=== PATIENT | female | born 1965 | race Caucasian/White ===

== ENCOUNTER 2018-05-26 11:09 | Outpatient (CLI) | payer BC ==
[~2018-05-26] VITALS: Ht 152.4 cm; Wt 74.5 kg
--- NOTE | ~2018-05-26 | HEMODYNAMI ---
PATIENT:MEE SPIVEY MEDICAL RECORD: [id number] : 69 LOCATION:[facility] ADMISSION DATE: 05/26/18 Generatedon:05/26/201814:32 Patient name: MEE SPIVEY Patient #: [id number] SSN: : Date of study: 05/26/2018 Page: Of Hemodynamic Procedure Report Patient Data Patient Demographics Procedure consent was obtained First Name: MEE Gender: Female Last Name: PATRIC : 1965 [facility] Initial: JARROD Age: 52 year(s) Patient #: [id number] Race: Unknown Additional ID: [id number] Contact details Address: [address] [place] [address] rd [facility] [place] [facility] Zip code: [address] Admission Admission Data Admission Date: 05/26/2018 Admission Time: 11:09 Admit Source: Other Insurance Payor: Private health insurance Height (in.): 62 BSA: 1.75 (m2) Height (cm.): 157.48 BMI: 29.63 (kg/m2) Weight (lbs.): 162 Weight (kg.): 73.48 Lab Results Lab Result Date: 05/26/2018 Lab Result Time: 0:00 Biochemistry Name Units Result Min Max BUN mg/dl 16 --(---*)-- 7 18 Creatinine mg/dl 1.1 --(--*-)-- 0.6 1.3 CBC Name Units Result Min Max Hemoglobin g/dl 13.5 --(*---)-- 13.5 17.5 Procedure Procedure Types Cath Procedure Diagnostic Procedure LHC LHC w/Coronaries Sedation Charges Moderate Sedation up to 15 minutes Procedure Description Procedure Date Procedure Date: 05/26/2018 Procedure Start Time: 14:04 Procedure End Time: 14:22 Procedure Staff Name Function John Cash MD Performing Physician Donna Godinez RT Monitor Dwight Weaver RN Nurse Pham Way RT Scrub Procedure Data Cath Procedure Fluoroscopy Diagnostic fluoroscopy Total fluoroscopy Time: 3.9 time: 3.9 min min Diagnostic fluoroscopy Total fluoroscopy dose: 597 dose: 597 mGy mGy Contrast Material Contrast Material Type Amount (ml) Isovue 300 58 Entry Location Entry Primary Successful Side Size Upsize Upsize Entry Closure Honeycutt ccessful Closure Location (Fr) 1 (Fr) 2 (Fr) Remarks Device Remarks Radial Right 6 Fr Mechanical artery Short Compression Femoral Right 5 Fr Exoseal artery Estimated blood loss: 5 ml Diagnostic catheters Device Type Used For End Catheter Placement DIAGNOSTIC Diamondhead 110cm 5 Multi-vessel Fr catheter ([id number]) Angiography DIAGNOSTIC JL 4.0 5Fr Left Coronary catheter ([id number]) Angiography DIAGNOSTIC Pigtail 5Fr LV Angiography catheter ([id number]) Procedure Complications No complications Procedure Medications Medication Administration Route Dosage Oxygen etCO2 Nasal cannula 2 l/min Heparin Flush Bag added to field 2 bags (1000units/500ml NS) 0.9% NaCl I.V. 100 ml/hr Radial Cocktail added to field 1 syringe (Verapomil 2mg/Nitro 400mcg/Heparin 1500units) Fentanyl I.V. 50 mcg Versed I.V. 1 mg Fentanyl I.V. 50 mcg Versed I.V. 1 mg Radial Cocktail I.A. 1 syringe (Verapomil 2mg/Nitro 400mcg/Heparin 1500units) Fentanyl I.V. 100 mcg Hemodynamics Rest BSA: 1.75 (m2) HGB: 13.5 (g/dl) O2 Consumption: Estimated: 177.23 (ml/min) O2 Co nsumption indexed: Estimated:101.27 (ml/min/m) Heart Rate: 80 (bpm) Pressure Samples Time Site Value (mmHg) Purpose Heart Use Rate(bpm) 14:19 LV 83/-22,3 Snapshot 85 14:19 AO 92/68(78) Pullback 78 14:19 LV 112/20,18 Pullback 78 Gradients Valve Time Site 1 Site 2 Mean SEP/DFP Peak To Heart Use (mmHg) (sec/min) Peak Rate (mmHg) (bpm) Aortic 14:19 LV AO 15 22 20 78 112/20,18 92/68(78) Calculations Valve P-P Mean Valve Index Valve Source Name Gradient Area Flow (cm2) Aortic 20 15 20 15 Snapshots Pre Cath Intra NCS Post Cath Vital Signs Time Heart Resp SPO2 etCO2 NIBP (mmHg) Rhythm Pain Sedation Rate (ipm) (%) (mmHg) Status Level (bpm) 13:51:28 81 16 98 37.5 122/81(111) NSR 0 (11) 10(A) , No pain 13:55:36 83 17 99 40.5 128/81(104) NSR 0 (11) 10(A) , No pain 13:59:48 83 17 96 37.5 105/73(88) NSR 0 (11) 9(A) , No pain 14:03:52 78 16 95 33 100/72(87) NSR 0 (11) 9(A) , No pain 14:07:55 79 17 97 48.7 112/65(90) NSR 0 (11) 9(A) , No pain 14:12:01 87 16 93 43.6 105/58(78) NSR 0 (11) 9(A) , No pain 14:16:05 84 16 96 43.5 97/67(79) NSR 0 (11) 9(A) , No pain 14:20:04 81 17 96 42.8 98/73(81) NSR 0 (11) 9(A) , No pain 14:24:51 90 16 42.8 106/74(88) NSR 0 (11) 9(A) , No pain Medications Time Medication Route Dose Verified Delivered Reason Notes Effectiveness by by 13:52:01 Oxygen etCO2 2 l/min John Quintanilla Per Nasal St Reg Weaver RN physician cannula 13:52:10 Heparin Flush added 2 bags John Quintanilla used for Bag to St Reg Weaver RN procedure (1000units/500ml field HENRY NS) 13:52:19 0.9% NaCl I.V. 100 John Quintanilla Per ml/hr [facility] Reg Weaver RN physician 13:52:27 Radial Cocktail added 1 John Quintanilla used for (Verapomil to syringe [facility] Reg Weaver RN procedure 2mg/Nitro field HENRY 400mcg/Heparin 1500units) 13:56:54 Fentanyl I.V. 50 mcg John Quintanilla for sedation St Reg Weaver RN, MD 13:57:00 Versed I.V. 1 mg John Quintanilla for sedation St Reg Weaver RN, MD 14:03:58 Fentanyl I.V. 50 mcg John Quintanilla for sedation St Reg Weaver RN, MD 14:04:02 Versed I.V. 1 mg John Quintanilla for sedation St Reg Weaver RN, MD 14:07:35 Radial Cocktail I.A. 1 John Lopez for (Verapomil syringe St Reg Cash vasodilation 2mg/Nitro MD HENRY 400mcg/Heparin 1500units) 14:29:15 Fentanyl I.V. 100 mcg John Quintanilla for sedation St Reg Weaver RN, MD Procedure Log Time Note 13:08:43 Patient Height : 62 inches 13:08:52 Patient Weight : 162 lbs 13:25:27 Dwight Weaver RN sent for patient. Start room use. 13:31:28 Time tracking: Regular hours (M-F 7:00 - 5:00) 13:31:33 Plan of Care:Hemodynamics will remain stable., Cardiac rhythm will remain stable., Comfort level will be maintained., Respiratory function will remain adequate., Patient/ family verbilizes understanding of procedure., Procedure tolerated without complication., Recovers from procedure without complications.. 13:41:15 Patient received from Pre/Post Procedure Room to [facility] 2 Alert and oriented. Tansferred to table in Supine position. 13:41:17 Warm blankets applied, and jannet hugger turned on for patient comfort. 13:41:17 Correct patient and procedure confirmed by team. 13:41:19 Signed procedure consent form obtained from patient. 13:41:21 ECG and BP/O2 sat monitors applied to patient. 13:50:25 Vital chart was started 13:52:01 Oxygen 2 l/min etCO2 Nasal cannula was administered by Dwight Weaver RN; Per physician; 13:52:10 Heparin Flush Bag (1000units/500ml NS) 2 bags added to field was administered by Dwight Weaver RN; used for procedure; 13:52:19 0.9% NaCl 100 ml/hr I.V. was administered by Dwight Weaver RN; Per physician; 13:52:27 Radial Cocktail (Verapomil 2mg/Nitro 400mcg/Heparin 1500units) 1 syringe added to field was administered by Dwight Weaver RN; used for procedure; 13:54:35 Baseline sample Acquired. 13:54:39 Rhythm: sinus rhythm 13:54:41 Full Disclosure recording started 13:54:44 H&P Date Dictated: 05/26/2018 Within 30 days and on chart., H&P Addendum completed by physician on day of procedure. (MUST COMPLETE FOR ALL OUTPATIENTS). 13:54:48 Pre-procedure instructions explained to patient. 13:54:48 Pre-op teaching completed and patient verbalized understanding. 13:54:50 Family in waiting room. 13:54:53 Patient NPO since Midnight. 13:55:01 Is the patient allergic to Iodine/contrast media? No. 13:55:02 Was the patient premedicated? No 13:55:23 Is patient on blood thinner?No 13:55:24 Patient diabetic? Yes. 13:55:25 If diabetic: On Metformin? No 13:55:28 Previous problem with sedation/anesthesia? No ? 13:55:30 Snore? Yes 13:55:30 Sleep apnea? No 13:55:31 Deviated septum? No 13:55:32 Opens mouth fully? Yes 13:55:33 Sticks out tongue? Yes 13:55:37 Airway obstruction? No ? 13:55:42 Dentures? No ? 13:55:47 Pre procedure: right dorsailis pedis pulse 1+ Palpable, but thready & weak; easily obliterated 13:55:50 Pre procedure: left dorsailis pedis pulse 1+ Palpable, but thready & weak; easily obliterated 13:55:52 Patient pain scale 0/10 ?. 13:56:04 IV patent on arrival in left forearm with 0.9% NaCl at [facility]. 13:56:07 Lab results completed and on chart. 13:56:11 Right Radial & Right Groin area was prepped with chlora-prep and draped in sterile fashion 13:56:12 Alarms reviewed by R. N. 13:56:12 Sharps counted by scrub and verified by R.N. 13:56:13 Physician arrived 13:56:14 --------ALL STOP TIME OUT------ 13:56:14 Final Timeout: patient, procedure, and site verified with staff and physician. All members of the team are in agreement. 13:56:16 Right Radial & Right Groin site verified by team. 13:56:19 Physical assessment completed. ASA score P 2 - A patient with mild systemic disease as per John Cash MD. 13:56:22 Sedation plan: IV Moderate Sedation Medication:Versed, Fentanyl 13:56:26 Use device set Radial Dx or PCI 13:56:28 ACIST Syringe (35922) opened to sterile field. 13:56:28 Medline Cath Pack ([id number]) opened to sterile field. 13:56:29 Bag Decanter (2002) opened to sterile field. 13:56:29 DIAGNOSTIC WIRE .035 260cm J wire (676063) opened to sterile field. 13:56:30 ACIST Hand Control (91362) opened to sterile field. 13:56:30 ACIST Manifold (46429) opened to sterile field. 13:56:31 Tegaderm 4 x 4 (1626W) opened to sterile field. 13:56:31 MBrace Wrist Support ([id number]) opened to sterile field. 13:56:33 SHEATH 6Fr Prelude Radial ([id number]) opened to sterile field. 13:56:54 Fentanyl 50 mcg I.V. was administered by Dwight Weaver RN; for sedation; 13:57:00 Versed 1 mg I.V. was administered by Dwight Weaver RN; for sedation; 14:03:12 Zero performed for pressure channel P1 14:03:58 Fentanyl 50 mcg I.V. was administered by Dwight Weaver RN; for sedation; 14:04:02 Versed 1 mg I.V. was administered by Dwight Weaver RN; for sedation; 14:04:26 Procedure started. 14:04:30 Local anesthetic to right radial artery with Lidocaine 2% by John Cash MD.INITIAL ACCESS ONLY 14:07:29 A 6 Fr Short sheath was inserted into the Right Radial artery 14:07:35 Radial Cocktail (Verapomil 2mg/Nitro 400mcg/Heparin 1500units) 1 syringe I.A. was administered by John Cash MD; for vasodilation; 14:07:44 A DIAGNOSTIC Diamondhead 110cm 5 Fr catheter (887011) was advanced over the wire and used for Multi-vessel Angiography. 14:10:02 RCA angiography performed. 14:10:04 Injector settings: Ml/sec: 3, Volume: 6, 14:11:38 Catheter removed. 14:12:23 GUIDE 6FR EBU 3.0 catheter ([id number]) opened to sterile field. 14:13:29 6 Fr ebu 3 guide catheter was inserted over the wire 14:13:34 Guide Catheter removed. unable to cannulate vessel. 14:13:42 Local anesthetic to right femoral artery with Lidocaine 2% by John Cash MD.ADDITIONAL ACCESS 14:14:30 A 5 Fr sheath was inserted into the Right Femoral artery 14:14:51 SHEATH Prelude 5Fr 0.035 ([id number]) opened to sterile field. 14:16:12 A DIAGNOSTIC JL 4.0 5Fr catheter ([id number]) was advanced over the wire and used for Left Coronary Angiography. 14:16:37 LCA angiography performed. 14:16:40 Injector settings: Ml/sec: 3, Volume: 6, 14:17:02 Catheter removed. 14:17:13 A DIAGNOSTIC Pigtail 5Fr catheter (161488P) was advanced over the wire and used for LV Angiography. 14:17:38 EXOSEAL 5Fr (EX500) opened to sterile field. 14:18:04 TR BAND Standard ([id number]) opened to sterile field. 14:19:12 LV hemodynamics recorded. 14:19:13 LV gram done using BANG 14:19:16 Injector settings: Ml/sec: 5, Volume: 15, 14:19:47 Catheter removed. 14:20:15 Sheath removed intact; hemostasis achieved with Mechanical Compression to the Right Radial artery. 14:20:36 Sheath removed intact; hemostasis achieved with Exoseal to the Right Femoral artery. 14:20:39 Procedure ended.(Physican Out) 14:21:07 Fluoroscopy time 03.90 minutes. 14:21:12 Fluoroscopy dose: 597 mGy 14:21:12 Flurop Dose total: 597 14:21:16 Contrast amount:Isovue 300 58ml. 14:21:19 Sharps counted by scrub and verified by R.N. 14:21:22 TR band inflated with 10cc of air. 14:21:23 Insertion/operative site no bleeding no hematoma. 14:21:26 Post-op/insertion site Right Femoral artery dressed using a 4 x 4 and Tegaderm. 14:21:30 Post right radial artery:stable 14:21:36 Post Procedure Pulses reassessed and unchanged 14:21:39 Post procedure rhythm: unchanged. 14:21:42 Estimated blood loss: 5 ml 14:21:44 Post procedure instruction explained to patient.Patient verbalizes understanding. 14:21:44 Patient needs reinforcement of post procedure teaching. 14:21:57 Procedure type changed to Cath procedure, Diagnostic procedure, LHC, LHC w/Coronaries, Sedation Charges, Moderate Sedation up to 15 minutes 14:21:58 Procedure and supply charges have been captured, reviewed, submitted and are correct. 14:22:02 Procedure Complication : No complications 14:22:04 Vital chart was stopped 14:22:05 See physician's report for complete and final results. 14:22:07 Report given to Pre/Post Procedure Room. 14:22:10 Patient transfered to Pre/Post Procedure Room with Stretcher. 14:22:13 Procedure ended. 14:22:13 Full Disclosure recording stopped 14:22:33 End room use (Document Last) 14:25:45 Admit Source: Other 14:25:49 Insurance Payor : Private health insurance 14:26:10 Lab Result : Hemoglobin 13.5 g/dl 14:26:10 Lab Result : Creatinine 1.1 mg/dl 14:26:10 Lab Result : BUN 16 mg/dl 14:29:15 Fentanyl 100 mcg I.V. was administered by Dwight Weaver RN; for sedation; Device Usage Item Name Manufacture Quantity Catalog Number Hospital Part Current M inimal Lot# / Charge Number Stock Stock Serial# Code ACIST Syringe Acist 1 12300 233570 665460 [id number] 2 0 (34796) [employer] Medline Cath Cardinal 1 [id number] 926575 23873 358184 5 [facility] ([id number]) Bag Decanter Microtek 1 812317 49644 627756 5 () [employer] Inc. DIAGNOSTIC WIRE [facility] [place] 1 653158 516238 883758 304086 3 0 .035 260cm J wire (285683) ACIST Hand Acist 1 93769 439654 247049 946438 5 Control (32863) [employer] Inc ACIST Manifold Acist 1 20073 961597 232938 808652 5 (63124) [employer] Inc Tegaderm 4 x 4 3M 1 1626W 350775 338900 354596 5 (1626W) MBrace Wrist Advanced 1 140-0250-00 875605 98610 959901 5 Support Vascular ([id number]) Dynamics SHEATH 6Fr Merit 1 [id number] 730524 086365 437966 5 Prelude Radial Medical ([id number]) DIAGNOSTIC Terumo 1 40-9209 697379 973482 390766 5 Diamondhead 110cm 5 Fr catheter (704112) GUIDE 6FR EBU Medtronic 1 [id number] 362996 34100 843793 0 3.0 catheter ([id number]) SHEATH Prelude Merit 1 WXW-2R-38-035 124805 110576 380283 5 5Fr 0.035 Medical ([id number]-9M-89-035) DIAGNOSTIC JL Cardinal 1 [id number] 145874 331114 350242 1 0 4.0 5Fr Health catheter (937231F) DIAGNOSTIC Cardinal 1 [id number] 740609 221078 305321 5 Pigtail 5Fr Health catheter (416483Q) EXOSEAL 5Fr Cardinal 1 EX500 047108 076894 937418 1 0 (EX500) Health TR BAND Terumo 1 [id number] 679280 389557 369574 4 0 Standard ([id number]) Signature Audit Bryan Stage Time Signature Unsigned Intra-Procedure 05/26/2018 Donna Godinez 2:32:43 PM RT(R) Signatures Monitor : Donna Godinez RT Signature : Date : Time : [place] [id number] [place] [address]
--- NOTE | ~2018-05-26 | OP ---
PATIENT NAME: MEE SPIVEY MEDICAL RECORD: [id number] :69 LOCATION:D[facility] ADMISSION DATE: SURGEON: JOCELIN CELESTIN MD DATE OF OPERATION: 05/26/2018 PROCEDURE: Left heart catheterization, selective coronary angiography, right femoral artery approach. Unable to engage the coronaries due to tortuosity radially. FINDINGS: Left ventriculography in 30-degree BANG view: Normal wall motion, normal systolic function. CORONARY ANATOMY: LEFT MAIN: Left main is free of disease. LAD: Free of disease in the diagonal system. CIRCUMFLEX: Huge codominant circ, free of disease. RIGHT CORONARY ARTERY: Again, codominant, large vessel, free of disease. IMPRESSION: Normal LV systolic function, normal coronary anatomy. TRANSINT:[id number] Voice Confirmation ID: [id number] DOCUMENT ID: [id number] JOCELIN CELESTIN MD at 1305 CC: [id number] DICTATION DATE: 05/26/18 1426 INSEAMER: 05/26/18 1433 DEP CLI 05/26/18 [facility] [address] [place] [address]
[2018-05-26 11:42] VITALS: BP 128/92; Ht 152.4 cm; Wt 74.5 kg
[2018-05-26 11:49] LABS: BASOPHILS 0.4 % (0-2); EOSINOPHILS 1.7 % (0-7); HEMATOCRIT 39.6 % (36.0-48.0); HEMOGLOBIN 13.5 g/dL (12-16); IMMATURE GRANULOCYTES 0.1 % (0-5); LYMPHOCYTES 32.4 % (15-50); MCH 30.6 pg (26.0-34.0); MCHC 34.1 g/dL (31.0-37.0); MCV 89.8 fL (80.0-100.0); MEAN PLATELET VOLUME 10.9 fL (7.4-10.4); MONOCYTES 7.5 % (2-11); NEUTROPHILS 57.9 % (40-80); PLATELET COUNT 293 10x3/uL (130-400); RBC 4.41 10x6/uL (4.00-5.40); RDW 13.5 % (11.5-14.5); WBC 10.4 10x3/uL (4.8-10.8)
[2018-05-26 12:06] LABS: ANION GAP 9.6 mmol/L (8-16); CALCIUM 9.1 mg/dL (8.5-10.1); CARBON DIOXIDE 31.2 mmol/L (21.0-32.0); CREATININE - SERUM 1.1 mg/dL (0.6-1.3); POTASSIUM - SERUM 3.8 mmol/L (3.5-5.1)
[2018-05-26] MEDS ORDERED: TRULICITY1.5 MG/0.5 SC (14:48)
[2018-05-26] MEDS ORDERED: LEVOTHYROXINE112 MCG PO (14:48)
[2018-05-26] MEDS ORDERED: LIPITOR20 MG PO (14:49)
[2018-05-26] MEDS ORDERED: OMEPRAZOLE40 MG PO (14:49)
[2018-05-26] MEDS ORDERED: ALTACE10 MG PO (14:50)
[2018-05-26] MEDS ORDERED: TOPROL XL50 MG PO (14:50)
[2018-05-26] MEDS ORDERED: VITAMIN D250000 UNIT PO (14:50)
== END 2018-05-26 16:45 | disposition home or self-care (01) ==
LOC: D.CATH 11:09
PROVIDERS: Internal Medicine Interventional Cardiology
DX: R94.39 Abnormal result of other cardiovascular function study (principal)